=== PATIENT | male | born 1985 | race Two or more races ===

== ENCOUNTER 2021-11-17 10:41 | Emergency (ER) | payer OTHER ==
[~2021-11-17] VITALS: Ht 177.8 cm; Wt 108.9 kg
[2021-11-17 10:44] VITALS: BP 123/87
[2021-11-17] MEDS ORDERED: TETANUS-DIPTH-ACEL PERTUSSIS 0.5ML SYR Tdap IM ONE (11:00)
[2021-11-17] MEDS ORDERED: ACET-1158 PO ×2 (11:17→18:55)
[2021-11-17] MEDS ORDERED: CEPH-509 PO ×2 (11:17→18:55)
== END 2021-11-17 12:14 | disposition home or self-care (01) ==
LOC: ER 10:41
DX: S61.412A Laceration without foreign body of left hand, initial encounter (principal); Z79.899 Other long term (current) drug therapy; W26.8XXA Contact with other sharp object(s), not elsewhere classified, initial encounter; Y93.89 Activity, other specified; Y92.89 Other specified places as the place of occurrence of the external cause; Y99.8 Other external cause status
CPT/HCPCS: 12002; 90471; 90715; 99283; J2001